=== PATIENT | female | born 2000 | race American Indian/Alaskan Native ===

== ENCOUNTER 2019-07-20 21:10 | Inpatient (IN) | payer MEDICAID ==
[2019-07-20] MEDS ORDERED: Sodium Chloride 0.9% 10 ML Syringe FLUSH PRN ×2 (23:04→23:33)
[2019-07-20] MEDS ORDERED: Acetaminophen 325 MG Tab PO PRN (23:33)
[2019-07-20] MEDS ORDERED: ePHEDrine 50 MG/ML SDV IVPUSH PRN ×2 (23:33)
[2019-07-20] MEDS ORDERED: diphenhydrAMINE 50 MG/ML SDV IVPUSH PRN ×2 (23:33)
[2019-07-20] MEDS ORDERED: Naloxone 0.4 MG/ML SDV IVPUSH PRN (23:33)
[2019-07-20] MEDS ORDERED: Ondansetron 4 MG/2 ML SDV IV PRN (23:33)
[2019-07-20] MEDS ORDERED: Lactated Ringers 1,000 ML IV ONE (23:33)
[2019-07-20] MEDS ORDERED: ePHEDrine 50 MG/ML SDV ONE (23:41)
[2019-07-20] MEDS ORDERED: Ropivacaine 200 MG in Premix Bag 1 BAG EPIDUR SCH (23:45)
--- NOTE | 2019-07-20 23:52 | PCM.LDHP ---
L&D History of Present Illness - General Date of Service: 07/20/19 Admit Problem/Dx: Patient Status Order with Admit Dx/Problem 07/20/19 21:30 Admission Status [Patient Status] [ADT] Routine 07/20/19 23:34 Patient Status [ADT] Routine Admission Diagnosis/Problem Admission Diagnosis/Problem - Related Data Allergies/Adverse Reactions: Allergies Allergy/AdvReac Type Severity Reaction Status Date / Time No Known Allergies Allergy Verified 07/20/19 22:22 Home Medications: Home Meds Mv-Mn/Iron/FA/Herbal/Digestive [ One Tablet] 1 tab PO DAILY 07/20/19 [ History] cephALEXin [Cephalexin] 500 mg PO BID 07/20/19 [History] Past Medical History - Past Health History Medical/Surgical History: Denies Medical/Surgical History 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: Psychiatric History: Reports: Anxiety, Depression Social & Family History - Family History Family Medical History: Noncontributory - Tobacco Use Smoking Status *Q: Current Every Day Smoker Years of Tobacco use: 11 Packs/Tins Daily: 1 Used Tobacco, but Quit: No Second Hand Smoke Exposure: No - Caffeine Use Caffeine Use: Reports: Energy Drinks, Soda - Recreational Drug Use Recreational Drug Use: Yes Drug Use in Last 12 Months: Yes Recreational Drug Type: Reports: Marijuana/Hashish Recreational Drug Use Frequency: Not Used In Over 3 Months Recreational Drug Last Use: three months ago H&P Review of Systems - Review of Systems: Review Of Systems: See Below General: Reports: No Symptoms HEENT: Reports: No Symptoms Pulmonary: Reports: No Symptoms Cardiovascular: Reports: No Symptoms Gastrointestinal: Reports: No Symptoms Genitourinary: Reports: No Symptoms Musculoskeletal: Reports: No Symptoms Skin: Reports: No Symptoms Psychiatric: Reports: No Symptoms Neurological: Reports: No Symptoms Hematologic/Lymphatic: Reports: No Symptoms Immunologic: Reports: No Symptoms L&D Exam - Exam Exam: See Below - Vital Signs Vital Signs: Last Vital Signs Temp 36.3 C 07/20/19 21:17 Pulse 88 07/20/19 21:17 Resp 18 07/20/19 21:17 BP 121/75 07/20/19 21:17 Pulse Ox 94 L 07/20/19 21:17 Weight: 69.127 kg - OB Specific Contraction Intensity: Strong Movement: Active Heart Tones: Present Heart Rate (FHR) Variability: Moderate (6-25 bmp) Presentation: Vertex - Garcia Score Garcia Score Cervix Position: Anterior Garcia Score Consistency: Soft Garcia Score Effacement: >80% Garcia Score Dilation: 3-4 cm Garcia Score Infant's Station: -1 ,0 Garcia Score Total: 11 - Exam General: Alert, Oriented, Cooperative HEENT: PERRLA, Conjunctiva Clear, EACs Clear, EOMI, Hearing Intact, Mucosa Moist & [place], Nares Patent, Normal Nasal Septum, Posterior Pharynx Clear, TMs Clear Neck: Supple, Trachea Midline Lungs: Clear to Auscultation, Normal Respiratory Effort Cardiovascular: Regular Rate, Regular Rhythm GI/Abdominal Exam: Normal Bowel Sounds, Soft, Non-Tender, No Organomegaly, No Distention, No Abnormal Bruit, No Mass, Pelvis Stable Rectal Exam: Normal Exam, Normal Rectal Tone Genitourinary: Normal external exam, Normal bimanual exam, Normal speculum exam Back Exam: Normal Inspection, Full Range of Motion Extremities: Normal Inspection, Normal Range of Motion, Non-Tender, No Pedal Edema, Normal Capillary Refill Skin: Warm, Dry, Intact Neurological: Cranial Nerves Intact, Reflexes Equal Bilateral DTR: 2+: Patella (L), Patella (R) Psychiatric: Alert, Normal Affect, Normal Mood - Patient Data Lab Results Last 24 hrs: Laboratory Results - last 24 hr 07/20/19 07/20/19 07/20/19 Range/Units 21:20 21:21 21:46 WBC (4.5-11.0) K/uL RBC (3.30-5.50) M/uL Hgb (12.0-15.0) g/dL Hct (36.0-48.0) % MCV (80-98) fL MCH (27-31) pg MCHC (32-36) % Plt Count (150-400) K/uL Neut % (Auto) (36-66) % Lymph % (Auto) (24-44) % [place] % (Auto) (2-6) % Eos % (Auto) (2-4) % Baso % (Auto) (0-1) % Urine Color Yellow (YELLOW) Urine Appearance Turbid A (CLEAR) Urine pH 7.0 (5.0-8.0) Ur Specific [place] 1.015 (1.008-1.030) Urine Protein 100 H (NEGATIVE) mg/dL Urine Glucose (UA) Normal (NEGATIVE) mg/dL Urine Ketones Negative (NEGATIVE) mg/dL Urine Occult Blood Small H (NEGATIVE) Urine Nitrite Negative (NEGATIVE) Urine Bilirubin Negative (NEGATIVE) Urine Urobilinogen 0.2 (0.2-1.0) EU/dL Ur Leukocyte Esterase Small H (NEGATIVE) Urine RBC 10-20 H (0-5) Urine WBC 10-20 H (0-5) Ur Epithelial Cells Few Amorphous Sediment Few Urine Bacteria Few Urine Mucus Not seen Membrane Rupture Positive H (NEGATIVE) Urine Opiates Screen Negative (NEGATIVE) Ur Oxycodone Screen Negative (NEGATIVE) Urine Methadone Screen Negative (NEGATIVE) Ur Propoxyphene Screen Negative (NEGATIVE) Ur Barbiturates Screen Negative (NEGATIVE) Ur Tricyclics Screen Negative (NEGATIVE) Ur Phencyclidine Scrn Negative (NEGATIVE) Ur Amphetamine Screen Negative (NEGATIVE) U Methamphetamines Scrn Presumptive positive H (NEGATIVE) Urine MDMA Screen Negative (NEGATIVE) U Benzodiazepines Scrn Negative (NEGATIVE) U Cocaine Metab Screen Negative (NEGATIVE) U Marijuana (THC) Screen Negative (NEGATIVE) 07/20/19 Range/Units 23:30 WBC 9.5 (4.5-11.0) K/uL RBC 3.38 (3.30-5.50) M/uL Hgb 10.5 L (12.0-15.0) g/dL Hct 31.1 L (36.0-48.0) % MCV 92 (80-98) fL MCH 31 (27-31) pg MCHC 34 (32-36) % Plt Count 336 (150-400) K/uL Neut % (Auto) 58 (36-66) % Lymph % (Auto) 31 (24-44) % [place] % (Auto) 8 H (2-6) % Eos % (Auto) 2 (2-4) % Baso % (Auto) 1 (0-1) % Urine Color (YELLOW) Urine Appearance (CLEAR) Urine pH (5.0-8.0) Ur Specific [place] (1.008-1.030) Urine Protein (NEGATIVE) mg/dL Urine Glucose (UA) (NEGATIVE) mg/dL Urine Ketones (NEGATIVE) mg/dL Urine Occult Blood (NEGATIVE) Urine Nitrite (NEGATIVE) Urine Bilirubin (NEGATIVE) Urine Urobilinogen (0.2-1.0) EU/dL Ur Leukocyte Esterase (NEGATIVE) Urine RBC (0-5) Urine WBC (0-5) Ur Epithelial Cells Amorphous Sediment Urine Bacteria Urine Mucus Membrane Rupture (NEGATIVE) Urine Opiates Screen (NEGATIVE) Ur Oxycodone Screen (NEGATIVE) Urine Methadone Screen (NEGATIVE) Ur Propoxyphene Screen (NEGATIVE) Ur Barbiturates Screen (NEGATIVE) Ur Tricyclics Screen (NEGATIVE) Ur Phencyclidine Scrn (NEGATIVE) Ur Amphetamine Screen (NEGATIVE) U Methamphetamines Scrn (NEGATIVE) Urine MDMA Screen (NEGATIVE) U Benzodiazepines Scrn (NEGATIVE) U Cocaine Metab Screen (NEGATIVE) U Marijuana (THC) Screen (NEGATIVE) Result Diagrams: 07/20/19 23:30 - Problem List (1) Insufficient care SNOMED Code(s): 8938373029471 ICD Code: O09.30 - SUPRVSN OF PREG W INSUFFICIENT ANTENAT CARE, UNSP TRIMESTER Status: Acute Current Visit: Yes (2) Maternal drug use complicating in third trimester, antepartum SNOMED Code(s): 179618080, 608963338 ICD Code: O99.323 - DRUG USE COMPLICATING , THIRD TRIMESTER Status : Acute Current Visit: Yes (3) 38 weeks gestation of SNOMED Code(s): 36109132 ICD Code: Z3A.38 - 38 WEEKS GESTATION OF Status: Acute Current Visit: Yes (4) SROM (spontaneous rupture of membranes) SNOMED Code(s): 218312441 ICD Code: [id number] - Status: Acute Current Visit: Yes Problem List Initiated/Reviewed/Updated: Yes Orders Last 24hrs: Active Orders 24 hr Category Date Time Status Admission Status [Patient Status] [ADT] Routine ADT 07/20/19 21:30 Active Patient Status [ADT] Routine ADT 07/20/19 23:34 Ordered Ambulate [RC] PER UNIT ROUTINE Care 07/20/19 23:33 Ordered Communication Order [RC] ASDIRECTED Care 07/20/19 23:34 Ordered Communication Order [RC] ASDIRECTED Care 07/20/19 23:34 Ordered Communication Order [RC] ROUTINE Care 07/20/19 23:34 Ordered Communication Order [RC] ROUTINE Care 07/20/19 23:34 Ordered Communication Order [RC] ROUTINE Care 07/20/19 23:34 Ordered Heart Tones [RC] PER UNIT ROUTINE Care 07/20/19 23:34 Ordered Non Stress Test [RC] Click to Edit Care 07/20/19 23:34 Ordered Insert Urinary Catheter [OM.PC] ASDIRECTED Care 07/20/19 23:45 Ordered Local Anesthetic Infusion Pump [RC] ASDIRECTED Care 07/20/19 23:34 Ordered Notify Provider Vital Signs [RC] PRN Care 07/20/19 23:33 Ordered Notify Provider [RC] PRN Care 07/20/19 23:34 Ordered Oxygen Therapy [RC] ASDIRECTED Care 07/20/19 23:34 Ordered PCEA Epidural [RC] ASDIRECTED Care 07/20/19 23:34 Ordered PCEA Epidural [RC] ASDIRECTED Care 07/20/19 23:34 Ordered PCEA Epidural [RC] ASDIRECTED Care 07/20/19 23:35 Ordered Pulse Oximetry [RC] ASDIRECTED Care 07/20/19 23:34 Ordered Up ad [place] [RC] ASDIRECTED Care 07/20/19 23:33 Ordered Urinary Catheter Assessment [RC] ASDIRECTED Care 07/20/19 23:35 Ordered VTE/DVT Education [RC] Click to Edit Care 07/20/19 23:37 Ordered Vital Signs [RC] PER UNIT ROUTINE Care 07/20/19 23:34 Ordered Vital Signs [RC] PER UNIT ROUTINE Care 07/20/19 23:34 Ordered Consult to Case Management/Personnel Security Assistant [CONS] Cons 07/20/19 23:33 Ordered Routine Regular Diet [DIET] Diet 07/20/19 Breakfast Ordered METHAMPHETAMINE D/L ISOMERS Routine Lab 07/20/19 22:39 Received Acetaminophen [Tylenol] Med 07/20/19 23:33 Ordered 650 mg PO Q4H PRN Lactated Ringers [Ringers, Lactated] 1,000 ml Med 07/20/19 23:33 Ordered IV .BOLUS Naloxone [Narcan] Med 07/20/19 23:33 Ordered 0.1 mg IVPUSH ASDIRECTED PRN Ondansetron [Zofran] Med 07/20/19 23:33 Ordered 4 mg IV Q4H PRN Ropivacaine [Naropin 0.2%] 200 mg Med 07/20/19 23:45 Ordered Premix Bag 1 bag EPIDUR ASDIRECTED Sodium Chloride 0.9% [Saline Flush] Med 07/20/19 23:04 Active 10 ml FLUSH ASDIRECTED PRN Sodium Chloride 0.9% [Saline Flush] Med 07/20/19 23:33 Ordered 10 ml FLUSH ASDIRECTED PRN diphenhydrAMINE [Benadryl] Med 07/20/19 23:33 Ordered 25 mg IVPUSH Q6H PRN diphenhydrAMINE [Benadryl] Med 07/20/19 23:33 Ordered 50 mg IVPUSH Q6H PRN ePHEDrine [ePHEDrine sulfate] Med 07/20/19 23:33 Ordered 10 mg IVPUSH ASDIRECTED PRN ePHEDrine [ePHEDrine sulfate] Med 07/20/19 23:33 Ordered 10 mg IVPUSH ASDIRECTED PRN DVT/VTE Prophylaxis Reflex [OM.PC] Routine Oth 07/20/19 23:33 Ordered Epidural Catheter Management [OM.PC] Routine Oth 07/20/19 23:34 Ordered Epidural Catheter Management [OM.PC] Urgent Oth 07/20/19 23:34 Ordered Peripheral IV Insertion Pediatric [OM.PC] Routine Oth 07/20/19 23:34 Ordered Saline Lock Insert [OM.PC] Routine Oth 07/20/19 23:04 Ordered Saline Lock Insert [OM.PC] Routine Oth 07/20/19 23:34 Ordered Resuscitation Status Routine Resus Stat 07/20/19 23:33 Ordered Medication Orders Acetaminophen (Tylenol) 650 mg PO Q4H PRN PRN Reason: Pain (Mild 1-3) and fever Diphenhydramine HCl (Benadryl) 25 mg IVPUSH Q6H PRN PRN Reason: Itching Diphenhydramine HCl (Benadryl) 50 mg IVPUSH Q6H PRN PRN Reason: Itching Ephedrine Sulfate (Ephedrine Sulfate) 10 mg IVPUSH ASDIRECTED PRN PRN Reason: Hypotension Ephedrine Sulfate (Ephedrine Sulfate) 10 mg IVPUSH ASDIRECTED PRN PRN Reason: Hypotension Lactated Ringer's (Ringers, Lactated) 1,000 mls @ 999 mls/hr IV .BOLUS ONE Stop: 07/21/19 00:33 Ropivacaine 200 mg/ Premix 100 mls @ 0 mls/hr EPIDUR ASDIRECTED MINH Naloxone HCl (Narcan) 0.1 mg IVPUSH ASDIRECTED PRN PRN Reason: Oversedation Ondansetron HCl (Zofran) 4 mg IV Q4H PRN PRN Reason: Nausea/Vomiting Sodium Chloride (Saline Flush) 10 ml FLUSH ASDIRECTED PRN PRN Reason: Keep Vein Open Sodium Chloride (Saline Flush) 10 ml FLUSH ASDIRECTED PRN PRN Reason: Keep Vein Open Assessment/Plan Comment:: 07/21/2019 18 yo at 38 0/7 gestational weeks came in with SROM around 1999 last evening Inconsistent history from patient Per records from [facility] Drug screen positive for methamphetamines on admission SVE-2-3/-1 Amnisure positive FHTs category one Patient states history of term demise she delivered at home with little to no care three years ago Significant other in room, supportive, states he has open CPS cases for history of drug abuse in [place] Labs-O positive, HIV negative, Rubella Immune, Hep B neg, GBS negative Plan- Continue to monitor for labor Continue to monitor FHT Patient can have an epidural for pain control Will place baby on a hold for positive methamphetamine in UDS Plan and anticipate a vaginal delivery
[2019-07-20] MEDS ORDERED: Ropivacaine 100 ML ONE (23:54)
--- NOTE | 2019-07-21 00:28 | PCM.PNLD ---
Labor Progress Note - VS & Meds Vital Signs: Last Vital Signs Temp 36.3 C 07/20/19 21:17 Pulse 112 H 07/21/19 00:08 Resp 18 07/20/19 21:17 BP 109/76 07/21/19 00:08 Pulse Ox 97 07/20/19 23:34 Active Medications: Current Medications Acetaminophen (Tylenol) 650 mg PO Q4H PRN PRN Reason: Pain (Mild 1-3) and fever Diphenhydramine HCl (Benadryl) 25 mg IVPUSH Q6H PRN PRN Reason: Itching Diphenhydramine HCl (Benadryl) 50 mg IVPUSH Q6H PRN PRN Reason: Itching Ephedrine Sulfate (Ephedrine Sulfate) 10 mg IVPUSH ASDIRECTED PRN PRN Reason: Hypotension Ephedrine Sulfate (Ephedrine Sulfate) 10 mg IVPUSH ASDIRECTED PRN PRN Reason: Hypotension Lactated Ringer's (Ringers, Lactated) 1,000 mls @ 999 mls/hr IV .BOLUS ONE Stop: 07/21/19 00:33 Last Admin: 07/20/19 22:45 Dose: 999 mls/hr Ropivacaine 200 mg/ Premix 100 mls @ 0 mls/hr EPIDUR ASDIRECTED MINH Naloxone HCl (Narcan) 0.1 mg IVPUSH ASDIRECTED PRN PRN Reason: Oversedation Ondansetron HCl (Zofran) 4 mg IV Q4H PRN PRN Reason: Nausea/Vomiting Sodium Chloride (Saline Flush) 10 ml FLUSH ASDIRECTED PRN PRN Reason: Keep Vein Open Sodium Chloride (Saline Flush) 10 ml FLUSH ASDIRECTED PRN PRN Reason: Keep Vein Open Discontinued Medications Ropivacaine (Naropin 0.2%) Confirm Administered Dose 100 mls @ as directed .ROUTE .STK-MED ONE Stop: 07/20/19 23:55 - Uterine Contractions Uterine Monitoring Mode: External [place] Contraction Intensity: Strong - Monitoring Monitor Mode: External Ultrasound Heart Rate (FHR) Baseline: 130 Heart Rate (FHR) Variability: Moderate (6-25 bmp) Accelerations: Present, 15x15 Decelerations: None Strip Review: Category I - Vaginal Exam Dilation (cm): 3 Effacement (Percent): 90 Station: 1 Cervical Position: Posterior Sterile Vaginal Exam Performed By: Dalia Vanessa - Labor Progress (Free Text) Labor Progress: 07/21/19 Assessment: at 38 weeks with SROM SVE /-1 Vertex presentation Category 1 tracing Plan: Nurse to recheck cervix at 0500, if no drastic change, start pitocin per protocol Anticipate vaginal
--- NOTE | 2019-07-21 01:49 | ANES ---
DATE OF SERVICE: 07/21/2019 INDICATION: Ms. Carlton is a 18-year-old female patient in labor, but I was asked to evaluate her for a labor epidural. She is approximately 3 cm and is a multipara. She was quite nervous and in quite a bit of pain when I arrived, and the risks and benefits of the procedure were explained to the patient, and she wished to proceed with labor epidural. TECHNIQUE: She was placed in a sitting position. Her back was prepped x3 with Betadine and 1% lidocaine skin local was used. The epidural was placed at L3-L4 using a 17-gauge Tuohy needle in loss of resistance technique. The epidural had very good feel throughout, and the epidural space was easily identified. There was negative CSF, negative blood, and negative paresthesias noted. Therefore, a catheter was threaded to 13 cm at the skin. There was negative CSF, negative blood, and negative paresthesias with the catheter as well. A 3 mL test dose of 1.5% lidocaine with epinephrine was given, this test dose was negative. The catheter was then secured with Tegaderm and tape, and the patient was placed in a supine position. A 0.2% ropivacaine bolus of 12 mL was given. She had very good results from the initial bolus and her vital signs remained stable. Therefore, a 0.2% ropivacaine drip was started at 12 mL/h. She tolerated the procedure very nicely. Her vital signs remained stable throughout the procedure and nurse was with me for the entire procedure. There were no anesthesia complications noted. We will continue to monitor her throughout her Labor and Delivery stay. Sarwat Freeman CRNA /[id number]
[2019-07-21] MEDS ORDERED: Penicillin G Potassium 5 MILLUNITS in Sodium Chloride 0.9% 50 ML IV ONE (06:00)
--- NOTE | 2019-07-21 06:25 | PCM.PNLD ---
Labor Progress Note - VS & Meds Vital Signs: Last Vital Signs Temp 35.8 C 07/21/19 04:47 Pulse 73 07/21/19 05:15 Resp 16 07/21/19 03:03 BP 108/57 L 07/21/19 05:15 Pulse Ox 93 L 07/21/19 05:15 Active Medications: Current Medications Acetaminophen (Tylenol) 650 mg PO Q4H PRN PRN Reason: Pain (Mild 1-3) and fever Diphenhydramine HCl (Benadryl) 25 mg IVPUSH Q6H PRN PRN Reason: Itching Diphenhydramine HCl (Benadryl) 50 mg IVPUSH Q6H PRN PRN Reason: Itching Ephedrine Sulfate (Ephedrine Sulfate) 10 mg IVPUSH ASDIRECTED PRN PRN Reason: Hypotension Ephedrine Sulfate (Ephedrine Sulfate) 10 mg IVPUSH ASDIRECTED PRN PRN Reason: Hypotension Ropivacaine 200 mg/ Premix 100 mls @ 0 mls/hr EPIDUR ASDIRECTED MINH Oxytocin/Sodium Chloride (Pitocin In Ns 20 Units/1,000 Ml) 20 unit in 1,000 mls @ 6 mls/hr IV TITRATE MINH; Protocol Last Titration: 07/21/19 06:00 Dose: 6 munits/min, 18 mls/hr Penicillin G Potassium 5 (millunits/ Sodium Chloride) 50 mls @ 100 mls/hr IV ONETIME ONE Stop: 07/21/19 06:29 Last Admin: 07/21/19 06:19 Dose: 100 mls/hr Penicillin G Potassium 2.5 (millunits/ Sodium Chloride) 50 mls @ 100 mls/hr IV Q4H MINH Naloxone HCl (Narcan) 0.1 mg IVPUSH ASDIRECTED PRN PRN Reason: Oversedation Ondansetron HCl (Zofran) 4 mg IV Q4H PRN PRN Reason: Nausea/Vomiting Sodium Chloride (Saline Flush) 10 ml FLUSH ASDIRECTED PRN PRN Reason: Keep Vein Open Sodium Chloride (Saline Flush) 10 ml FLUSH ASDIRECTED PRN PRN Reason: Keep Vein Open Discontinued Medications Lactated Ringer's (Ringers, Lactated) 1,000 mls @ 999 mls/hr IV .BOLUS ONE Stop: 07/21/19 00:33 Last Admin: 07/20/19 22:45 Dose: 999 mls/hr Ropivacaine (Naropin 0.2%) Confirm Administered Dose 100 mls @ as directed .ROUTE .STK-MED ONE Stop: 07/20/19 23:55 Oxytocin/Sodium Chloride (Pitocin In Ns 20 Units/1,000 Ml) 20 unit in 1,000 mls @ 2,997 mls/hr IV ONETIME ONE; Protocol Stop: 07/21/19 00:49 - Uterine Contractions Uterine Monitoring Mode: External [place] Contraction Frequency (min): 2-3 Contraction Duration (sec): 40-60 Contraction Intensity: Strong - Monitoring Monitor Mode: External Ultrasound Heart Rate (FHR) Baseline: 130 Heart Rate (FHR) Variability: Moderate (6-25 bmp) Accelerations: Present, 15x15 Decelerations: None Strip Review: Category I - Vaginal Exam Dilation (cm): 10 Effacement (Percent): 100 Station: 1 Cervical Position: Midposition Sterile Vaginal Exam Performed By: Dalia Vanesas - Labor Progress (Free Text) Labor Progress: 07/21/19 Assessment: 10/100/+1 Pitocin augmentation started this am after no cervical change Epidural with good pain relief Category 1 tracing, occasional early and variable decel Plan: Labor down as long as baby tolerates Begin pushing when pt ready Anticipate Penicillin was given for prophylaxis of unknown/questionable rupture time and poor cervical change, questioning possible infection
[2019-07-21] MEDS ORDERED: Ibuprofen 600 MG Tab PO PRN (07:05)
[2019-07-21] MEDS ORDERED: Lanolin 100% Cream 40 GM Tube TOP PRN (07:05)
[2019-07-21] MEDS ORDERED: Witch Hazel Medicated Pads 100/Jar TOP ONE (07:05)
[2019-07-21] MEDS ORDERED: Benzocaine 20% Top Spray 56 GM Bottle TOP PRN (07:05)
--- NOTE | 2019-07-21 07:17 | PCM.DEL ---
L & D Note - General Info Date of Service: 07/21/19 Mother's Due Date: 08/04/19 - Delivery Note Labor: Spontaneous, Augmented by Oxytocin Delivery Outcome: Livebirth Infant Delivery Method: Spontaneous Vaginal Delivery-Single Infant Delivery Mode: Spontaneous Presentation: Vertex Nuchal Cord: None Anesthesia Type: Epidural Amniotic Fluid Description: Clear Episiotomy Type: None Laceration: None Placenta: Intact, Spontaneous Cord: 3 Vessels Resuscitation Needed: No [place]: Stimulated Score 1 min: 8 Score 5 min: 9 Second Stage Interventions: Reports: Second Nurse Assessed Progress of Descent, Second Nurse Reviewed Contraction Pattern, Second Nurse Reviewed Heart Tones, Encouragement Given, Laboring Down, Pushing Effectively, Pushing, McRobert's Position, Pushing, Stirrups/Leg Supports Delivery Comments (Free Text/Narrative):: 07/21/19 18 yo at 38 0/1 weeks delivered via spontaneous vaginal delivery at 0652 in [place] position. Baby was immediately placed on mothers chest and was dried and stimulated. Apgars 8, 9. No nuchal present, 3 vessel cord. Placenta was delivered spontaneously intact. There were no tears, there was a left periurethral split that was not bleeding and not repaired. No cervical lacerations, no vaginal lacerations. EBL: 150 ml Mother is stable and is on mothers chest. FF and bleeding scant. - General Info Date of Service: 07/21/19 Functional Status: Reports: Pain Controlled - Review of Systems General: Reports: No Symptoms HEENT: Reports: No Symptoms Pulmonary: Reports: No Symptoms Cardiovascular: Reports: No Symptoms Gastrointestinal: Reports: No Symptoms Genitourinary: Reports: No Symptoms Musculoskeletal: Reports: No Symptoms Skin: Reports: No Symptoms Neurological: Reports: No Symptoms Psychiatric: Reports: No Symptoms - Patient Data Vitals - Most Recent: Last Vital Signs Temp 35.8 C 07/21/19 04:47 Pulse 73 07/21/19 05:15 Resp 16 07/21/19 03:03 BP 108/57 L 07/21/19 05:15 Pulse Ox 93 L 07/21/19 05:15 Weight - Most Recent: 69.127 kg Lab Results Last 24 Hours: Laboratory Results - last 24 hr 07/20/19 07/20/19 07/20/19 Range/Units 21:20 21:21 21:46 WBC (4.5-11.0) K/uL RBC (3.30-5.50) M/uL Hgb (12.0-15.0) g/dL Hct (36.0-48.0) % MCV (80-98) fL MCH (27-31) pg MCHC (32-36) % Plt Count (150-400) K/uL Neut % (Auto) (36-66) % Lymph % (Auto) (24-44) % [place] % (Auto) (2-6) % Eos % (Auto) (2-4) % Baso % (Auto) (0-1) % Urine Color Yellow (YELLOW) Urine Appearance Turbid A (CLEAR) Urine pH 7.0 (5.0-8.0) Ur Specific [place] 1.015 (1.008-1.030) Urine Protein 100 H (NEGATIVE) mg/dL Urine Glucose (UA) Normal (NEGATIVE) mg/dL Urine Ketones Negative (NEGATIVE) mg/dL Urine Occult Blood Small H (NEGATIVE) Urine Nitrite Negative (NEGATIVE) Urine Bilirubin Negative (NEGATIVE) Urine Urobilinogen 0.2 (0.2-1.0) EU/dL Ur Leukocyte Esterase Small H (NEGATIVE) Urine RBC 10-20 H (0-5) Urine WBC 10-20 H (0-5) Ur Epithelial Cells Few Amorphous Sediment Few Urine Bacteria Few Urine Mucus Not seen Membrane Rupture Positive H (NEGATIVE) Urine Opiates Screen Negative (NEGATIVE) Ur Oxycodone Screen Negative (NEGATIVE) Urine Methadone Screen Negative (NEGATIVE) Ur Propoxyphene Screen Negative (NEGATIVE) Ur Barbiturates Screen Negative (NEGATIVE) Ur Tricyclics Screen Negative (NEGATIVE) Ur Phencyclidine Scrn Negative (NEGATIVE) Ur Amphetamine Screen Negative (NEGATIVE) U Methamphetamines Scrn Presumptive positive H (NEGATIVE) Urine MDMA Screen Negative (NEGATIVE) U Benzodiazepines Scrn Negative (NEGATIVE) U Cocaine Metab Screen Negative (NEGATIVE) U Marijuana (THC) Screen Negative (NEGATIVE) 07/20/19 Range/Units 23:30 WBC 9.5 (4.5-11.0) K/uL RBC 3.38 (3.30-5.50) M/uL Hgb 10.5 L (12.0-15.0) g/dL Hct 31.1 L (36.0-48.0) % MCV 92 (80-98) fL MCH 31 (27-31) pg MCHC 34 (32-36) % Plt Count 336 (150-400) K/uL Neut % (Auto) 58 (36-66) % Lymph % (Auto) 31 (24-44) % [place] % (Auto) 8 H (2-6) % Eos % (Auto) 2 (2-4) % Baso % (Auto) 1 (0-1) % Urine Color (YELLOW) Urine Appearance (CLEAR) Urine pH (5.0-8.0) Ur Specific [place] (1.008-1.030) Urine Protein (NEGATIVE) mg/dL Urine Glucose (UA) (NEGATIVE) mg/dL Urine Ketones (NEGATIVE) mg/dL Urine Occult Blood (NEGATIVE) Urine Nitrite (NEGATIVE) Urine Bilirubin (NEGATIVE) Urine Urobilinogen (0.2-1.0) EU/dL Ur Leukocyte Esterase (NEGATIVE) Urine RBC (0-5) Urine WBC (0-5) Ur Epithelial Cells Amorphous Sediment Urine Bacteria Urine Mucus Membrane Rupture (NEGATIVE) Urine Opiates Screen (NEGATIVE) Ur Oxycodone Screen (NEGATIVE) Urine Methadone Screen (NEGATIVE) Ur Propoxyphene Screen (NEGATIVE) Ur Barbiturates Screen (NEGATIVE) Ur Tricyclics Screen (NEGATIVE) Ur Phencyclidine Scrn (NEGATIVE) Ur Amphetamine Screen (NEGATIVE) U Methamphetamines Scrn (NEGATIVE) Urine MDMA Screen (NEGATIVE) U Benzodiazepines Scrn (NEGATIVE) U Cocaine Metab Screen (NEGATIVE) U Marijuana (THC) Screen (NEGATIVE) Med Orders - Current: Current Medications Acetaminophen (Tylenol) 650 mg PO Q4H PRN PRN Reason: Pain (Mild 1-3) and fever Diphenhydramine HCl (Benadryl) 25 mg IVPUSH Q6H PRN PRN Reason: Itching Diphenhydramine HCl (Benadryl) 50 mg IVPUSH Q6H PRN PRN Reason: Itching Ephedrine Sulfate (Ephedrine Sulfate) 10 mg IVPUSH ASDIRECTED PRN PRN Reason: Hypotension Ephedrine Sulfate (Ephedrine Sulfate) 10 mg IVPUSH ASDIRECTED PRN PRN Reason: Hypotension Ropivacaine 200 mg/ Premix 100 mls @ 0 mls/hr EPIDUR ASDIRECTED MINH Oxytocin/Sodium Chloride (Pitocin In Ns 20 Units/1,000 Ml) 20 unit in 1,000 mls @ 6 mls/hr IV TITRATE MINH; Protocol Last Titration: 07/21/19 06:00 Dose: 6 munits/min, 18 mls/hr Penicillin G Potassium 2.5 (millunits/ Sodium Chloride) 50 mls @ 100 mls/hr IV Q4H MINH Naloxone HCl (Narcan) 0.1 mg IVPUSH ASDIRECTED PRN PRN Reason: Oversedation Ondansetron HCl (Zofran) 4 mg IV Q4H PRN PRN Reason: Nausea/Vomiting Sodium Chloride (Saline Flush) 10 ml FLUSH ASDIRECTED PRN PRN Reason: Keep Vein Open Sodium Chloride (Saline Flush) 10 ml FLUSH ASDIRECTED PRN PRN Reason: Keep Vein Open Discontinued Medications Lactated Ringer's (Ringers, Lactated) 1,000 mls @ 999 mls/hr IV .BOLUS ONE Stop: 07/21/19 00:33 Last Admin: 07/20/19 22:45 Dose: 999 mls/hr Ropivacaine (Naropin 0.2%) Confirm Administered Dose 100 mls @ as directed .ROUTE .STK-MED ONE Stop: 07/20/19 23:55 Oxytocin/Sodium Chloride (Pitocin In Ns 20 Units/1,000 Ml) 20 unit in 1,000 mls @ 2,997 mls/hr IV ONETIME ONE; Protocol Stop: 07/21/19 00:49 Penicillin G Potassium 5 (millunits/ Sodium Chloride) 50 mls @ 100 mls/hr IV ONETIME ONE Stop: 07/21/19 06:29 Last Admin: 07/21/19 06:19 Dose: 100 mls/hr - Exam General: Alert, Oriented HEENT: Pupils Equal, Pupils Reactive, EOMI, Mucous Membr. Moist/[place] Neck: Supple Lungs: Clear to Auscultation, Normal Respiratory Effort Cardiovascular: Regular Rate, Regular Rhythm GI/Abdominal Exam: Normal Bowel Sounds, Soft, Non-Tender, No Organomegaly, Pelvis Stable (Female) Exam: Normal External Exam, Normal Bimanual Exam, Enlarged Uterus, Vaginal Bleeding. No: Cervical Lesions, Vaginal Lesions, Vaginal Tears Back Exam: Normal Inspection, Full Range of Motion Extremities: Normal Inspection, Normal Range of Motion, Non-Tender, No Pedal Edema, Normal Capillary Refill Skin: Warm, Dry, Intact Neurological: No New Focal Deficit Psy/Mental Status: Alert, Normal Affect, Normal Mood - Problem List & Annotations (1) Insufficient care SNOMED Code(s): 5167854517671 Code(s): O09.30 - SUPRVSN OF PREG W INSUFFICIENT ANTENAT CARE, UNSP TRIMESTER Status: Acute Current Visit: Yes (2) Maternal drug use complicating in third trimester, antepartum SNOMED Code(s): 016241425, 785701445 Code(s): O99.323 - DRUG USE COMPLICATING , THIRD TRIMESTER Status : Acute Current Visit: Yes (3) 38 weeks gestation of SNOMED Code(s): 94817885 Code(s): Z3A.38 - 38 WEEKS GESTATION OF Status: Acute Current Visit: Yes (4) SROM (spontaneous rupture of membranes) SNOMED Code(s): 591331355 Code(s): RQU8128 - Status: Acute Current Visit: Yes (5) Vaginal delivery SNOMED Code(s): 909106375 Code(s): O80 - ENCOUNTER FOR FULL-TERM UNCOMPLICATED DELIVERY Status: Acute Current Visit: Yes (6) started SNOMED Code(s): 894325049 Code(s): JDM6418 - Status: Acute Current Visit: Yes - Problem List Review Problem List Initiated/Reviewed/Updated: Yes - My Orders Last 24 Hours: My Active Orders 07/20/19 21:30 Admission Status [Patient Status] [ADT] Routine 07/20/19 22:39 METHAMPHETAMINE D/L ISOMERS Routine 07/20/19 23:04 Sodium Chloride 0.9% [Saline Flush] 10 ml FLUSH ASDIRECTED PRN Saline Lock Insert [OM.PC] Routine 07/20/19 23:33 Ambulate [RC] PER UNIT ROUTINE Notify Provider Vital Signs [RC] PRN Up ad [place] [RC] ASDIRECTED Consult to Case Management/Multimedia Services Manager [CONS] Routine Acetaminophen [Tylenol] 650 mg PO Q4H PRN Naloxone [Narcan] 0.1 mg IVPUSH ASDIRECTED PRN Ondansetron [Zofran] 4 mg IV Q4H PRN Sodium Chloride 0.9% [Saline Flush] 10 ml FLUSH ASDIRECTED PRN diphenhydrAMINE [Benadryl] 25 mg IVPUSH Q6H PRN diphenhydrAMINE [Benadryl] 50 mg IVPUSH Q6H PRN ePHEDrine [ePHEDrine sulfate] 10 mg IVPUSH ASDIRECTED PRN ePHEDrine [ePHEDrine sulfate] 10 mg IVPUSH ASDIRECTED PRN DVT/VTE Prophylaxis Reflex [OM.PC] Routine Resuscitation Status Routine 07/20/19 23:34 Patient Status [ADT] Routine Communication Order [RC] ASDIRECTED Communication Order [RC] ASDIRECTED Communication Order [RC] ROUTINE Communication Order [RC] ROUTINE Communication Order [RC] ROUTINE Heart Tones [RC] PER UNIT ROUTINE Non Stress Test [RC] Click to Edit Local Anesthetic Infusion Pump [RC] ASDIRECTED Notify Provider [RC] PRN Oxygen Therapy [RC] ASDIRECTED PCEA Epidural [RC] ASDIRECTED Pulse Oximetry [RC] ASDIRECTED Vital Signs [RC] PER UNIT ROUTINE Epidural Catheter Management [OM.PC] Routine Epidural Catheter Management [OM.PC] Urgent Peripheral IV Insertion Pediatric [OM.PC] Routine Saline Lock Insert [OM.PC] Routine 07/20/19 23:35 Urinary Catheter Assessment [RC] ASDIRECTED 07/20/19 23:37 VTE/DVT Education [RC] Click to Edit 07/20/19 23:45 Insert Urinary Catheter [OM.PC] ASDIRECTED Ropivacaine [Naropin 0.2%] 200 mg Premix Bag 1 bag EPIDUR ASDIRECTED 07/20/19 Breakfast Regular Diet [DIET] 07/21/19 00:30 Oxytocin/Normal Saline [Pitocin in NS 20 Units/1,000 ML] 20 unit in 1,000 ml IV TITRATE 07/21/19 05:46 Dietary Supplements [RC] BIDMEALS 07/21/19 07:05 Patient Status [ADT] Routine Vital Signs [RC] PFP Benzocaine [[id number]-[id number] 20% [place]] See Dose Instructions TOP Q4H ONE Ibuprofen [Motrin] 600 mg PO Q4H PRN Lanolin [Lansinoh HPA] 1 gm TOP ASDIRECTED ONE Witch Bea [Tucks] 1 pad TOP ASDIRECTED ONE Assess Lochia [WOMSER] Per Unit Routine Assess Uterine Involution [WOMSER] Per Unit Routine 07/21/19 07:07 Ice Therapy [OM.PC] Per Unit Routine Perineal Care [OM.PC] Per Unit Routine Sitz Bath [OM.PC] Per Unit Routine 07/21/19 07:08 Peripheral IV Discontinue [OM.PC] Routine 07/21/19 10:00 Penicillin G Potassium [Pfizerpen] 2.5 millunits Sodium Chloride 0.9% [Normal Saline] 50 ml IV Q4H 07/22/19 06:00 CBC WITH AUTO DIFF [HEME] Routine - Assessment Assessment:: 07/21/19 18 yo at 38 0/7 weeks with at 0652. No vaginal tears or lacerations. FF with scant bleeding. - Plan Plan:: 07/21/2019 18 yo at 38 0/7 gestational weeks came in with SROM around 1999 last evening Inconsistent history from patient Per records from [facility] care Drug screen positive for methamphetamines on admission SVE-2-/-1 Amnisure positive FHTs category one Patient states history of term demise she delivered at home with little to no care three years ago Significant other in room, supportive, states he has open CPS cases for history of drug abuse in [place] Labs-O positive, HIV negative, Rubella Immune, Hep B neg, GBS negative Plan- Continue to monitor for labor Continue to monitor FHT Patient can have an epidural for pain control Will place baby on a hold for positive methamphetamine in UDS Plan and anticipate a vaginal delivery 07/21/19 Routine cares support Anticipate 24-48 hour stay Social service consult placed
[2019-07-21] MEDS ORDERED: Ibuprofen 200 MG Tab, 24 Tab Bulk Bottle PO PRN (07:28)
[2019-07-21] MEDS ORDERED: Acetaminophen 325 MG Tab, 50 Tab Bulk Bottle PO PRN (07:28)
[2019-07-21] MEDS ORDERED: Penicillin G Potassium 2.5 MILLUNITS in Sodium Chloride 0.9% 50 ML IV SCH (10:00)
--- NOTE | 2019-07-22 08:46 | PCM.PNPP ---
- General Info Date of Service: 07/22/19 Functional Status: Reports: Pain Controlled - Review of Systems General: Reports: No Symptoms HEENT: Reports: No Symptoms Pulmonary: Reports: No Symptoms Cardiovascular: Reports: No Symptoms Gastrointestinal: Reports: No Symptoms Genitourinary: Reports: No Symptoms Musculoskeletal: Reports: No Symptoms Skin: Reports: No Symptoms Neurological: Reports: No Symptoms Psychiatric: Reports: Depression, Agitation, Other (flat affect) - General Info Date of Service: 07/22/19 - Patient Data Vital Signs - Most Recent: Last Vital Signs Temp 37.1 C 07/22/19 07:39 Pulse 80 07/22/19 07:39 Resp 16 07/22/19 07:39 BP 107/50 L 07/22/19 07:39 Pulse Ox 97 07/22/19 07:39 Weight - Most Recent: 69.127 kg I&O - Last 24 Hours: Intake & Output 07/21/19 07/22/19 07/22/19 22:59 06:59 14:59 Intake Total 340 250 Balance 340 250 Lab Results - Last 24 Hours: Laboratory Results - last 24 hr 07/22/19 Range/Units 05:30 WBC 13.5 H (4.5-11.0) K/uL RBC 3.62 (3.30-5.50) M/uL Hgb 11.0 L (12.0-15.0) g/dL Hct 33.5 L (36.0-48.0) % MCV 93 (80-98) fL MCH 30 (27-31) pg MCHC 33 (32-36) % Plt Count 305 (150-400) K/uL Neut % (Auto) 68 H (36-66) % Lymph % (Auto) 26 (24-44) % [place] % (Auto) 5 (2-6) % Eos % (Auto) 1 L (2-4) % Baso % (Auto) 0 (0-1) % Med Orders - Current: Current Medications Acetaminophen (Tylenol Bulk Bottle) 325 - 650 mg PO Q4H PRN PRN Reason: Pain Last Admin: 07/21/19 10:20 Dose: 325 mg Benzocaine (Mreh-N-Itzljxu 20% [place]) 0 gm TOP Q4H PRN PRN Reason: PAIN Diphenhydramine HCl (Benadryl) 25 mg IVPUSH Q6H PRN PRN Reason: Itching Diphenhydramine HCl (Benadryl) 50 mg IVPUSH Q6H PRN PRN Reason: Itching Emollient Ointment (Lansinoh Hpa) 0 gm TOP ASDIRECTED PRN PRN Reason: PAIN Ephedrine Sulfate (Ephedrine Sulfate) 10 mg IVPUSH ASDIRECTED PRN PRN Reason: Hypotension Ropivacaine 200 mg/ Premix 100 mls @ 0 mls/hr EPIDUR ASDIRECTED MINH Oxytocin/Sodium Chloride (Pitocin In Ns 20 Units/1,000 Ml) 20 unit in 1,000 mls @ 6 mls/hr IV TITRATE MINH; Protocol Last Titration: 07/21/19 06:00 Dose: 6 munits/min, 18 mls/hr Ibuprofen (Motrin Bulk Bottle) 600 mg PO Q6H PRN PRN Reason: Pain Last Admin: 07/21/19 10:19 Dose: 600 mg Naloxone HCl (Narcan) 0.1 mg IVPUSH ASDIRECTED PRN PRN Reason: Oversedation Ondansetron HCl (Zofran) 4 mg IV Q4H PRN PRN Reason: Nausea/Vomiting Sodium Chloride (Saline Flush) 10 ml FLUSH ASDIRECTED PRN PRN Reason: Keep Vein Open Discontinued Medications Ephedrine Sulfate (Ephedrine Sulfate) Confirm Administered Dose 50 mg .ROUTE .STK-MED ONE Stop: 07/20/19 23:42 Lactated Ringer's (Ringers, Lactated) 1,000 mls @ 999 mls/hr IV .BOLUS ONE Stop: 07/21/19 00:33 Last Admin: 07/20/19 22:45 Dose: 999 mls/hr Ropivacaine (Naropin 0.2%) Confirm Administered Dose 100 mls @ as directed .ROUTE .STK-MED ONE Stop: 07/20/19 23:55 Oxytocin/Sodium Chloride (Pitocin In Ns 20 Units/1,000 Ml) 20 unit in 1,000 mls @ 2,997 mls/hr IV ONETIME ONE; Protocol Stop: 07/21/19 00:49 Last Admin: 07/22/19 03:12 Dose: Not Given Penicillin G Potassium 5 (millunits/ Sodium Chloride) 50 mls @ 100 mls/hr IV ONETIME ONE Stop: 07/21/19 06:29 Last Admin: 07/21/19 06:19 Dose: 100 mls/hr Penicillin G Potassium 2.5 (millunits/ Sodium Chloride) 50 mls @ 100 mls/hr IV Q4H MINH Last Admin: 07/21/19 10:28 Dose: Not Given Sodium Chloride (Saline Flush) 10 ml FLUSH ASDIRECTED PRN PRN Reason: Keep Vein Open Witch Bea (Tucks) 1 pad TOP ASDIRECTED ONE Stop: 07/21/19 07:06 Last Admin: 07/22/19 03:12 Dose: Not Given - Infant Interaction Disposition, : to Nursery Interaction: Not Interacting Infant Feeding: Bottle Fed Support Person: Mother - Recovery Exam Fundal Tone: Firm Fundal Level: 1 Fingerbreadths Below Umbilicus Fundal Placement: Midline Lochia Amount: Small Lochia Color: Rubra/Red Perineum Description: Intact, Minimal Bruising/Swelling Episiotomy/Laceration: None Bladder Status: Palpable Urinary Elimination: Voided - Exam General: Alert, Oriented HEENT: Pupils Equal Neck: Supple Lungs: Clear to Auscultation, Normal Respiratory Effort Cardiovascular: Regular Rate, Regular Rhythm GI/Abdominal Exam: Normal Bowel Sounds, Soft, Non-Tender, No Organomegaly, No Distention, No Abnormal Bruit, No Mass, Pelvis Stable Extremities: Normal Inspection, Normal Range of Motion, Non-Tender, No Pedal Edema, Normal Capillary Refill Skin: Warm, Dry, Intact Wound/Incisions: Healing Well Neurological: No New Focal Deficit Psy/Mental Status: Alert, Depressed, Agitated - Problem List & Annotations (1) Insufficient care SNOMED Code(s): 4911162379867 Code(s): O09.30 - SUPRVSN OF PREG W INSUFFICIENT ANTENAT CARE, UNSP TRIMESTER Status: Acute Current Visit: Yes (2) Maternal drug use complicating in third trimester, antepartum SNOMED Code(s): 403876774, 134805550 Code(s): O99.323 - DRUG USE COMPLICATING , THIRD TRIMESTER Status : Acute Current Visit: Yes (3) 38 weeks gestation of SNOMED Code(s): 31842792 Code(s): Z3A.38 - 38 WEEKS GESTATION OF Status: Acute Current Visit: Yes (4) SROM (spontaneous rupture of membranes) SNOMED Code(s): 955548317 Code(s): QLC0059 - Status: Acute Current Visit: Yes (5) Vaginal delivery SNOMED Code(s): 936954772 Code(s): O80 - ENCOUNTER FOR FULL-TERM UNCOMPLICATED DELIVERY Status: Acute Current Visit: Yes - Problem List Review Problem List Initiated/Reviewed/Updated: Yes - Assessment Assessment:: 07/21/19 18 yo at 38 0/7 weeks with at 0652. No vaginal tears or lacerations. FF with scant bleeding. 07/22/19 PP day 1, stable Hgb 11.0 today Poor interaction and bonding with Mother in room with her, she says she would like to start antidepressants Offered treatment again and discussed options, patient declines - Plan Plan:: 07/21/2019 18 yo at 38 0/7 gestational weeks came in with SROM around 1999 last evening Inconsistent history from patient Per records from [facility] care Drug screen positive for methamphetamines on admission SVE-2-/-1 Amnisure positive FHTs category one Patient states history of term demise she delivered at home with little to no care three years ago Significant other in room, supportive, states he has open CPS cases for history of drug abuse in [place] Labs-O positive, HIV negative, Rubella Immune, Hep B neg, GBS negative Plan- Continue to monitor for labor Continue to monitor FHT Patient can have an epidural for pain control Will place baby on a hold for positive methamphetamine in UDS Plan and anticipate a vaginal delivery 07/21/19 Routine cares support Anticipate 24-48 hour stay Social service consult placed 07/22/19 Will discharge today but encouraged mother to stay here in her room so she can barry and care for her baby Will start Celexa, follow up in 1 week for mood with me or in [place] Pt will let me know if she changes her mind about treatment, but currently refuses
[2019-07-22] MEDS ORDERED: Citalopram 10 MG Tab PO SCH (09:00)
[2019-07-27 09:08] LABS: L-METHAMPHETAMINE <10 ng/mL (NEG)
== END 2019-07-22 17:29 | disposition home or self-care (01) | DRG 806 ==
LOC: JP.OBCHECK 21:10 → JP.OB 21:27 → UNDOADMOB 21:27 → OBSVTOIN 07-21 06:52 → JP.OB 07-21 06:52 → JP.MS 07-21 11:15
PROVIDERS: ADMIT Advanced Practice Midwife; ATTEND Advanced Practice Midwife
PROC: 10E0XZZ Delivery of Products of Conception, External Approach (ICD-10-PCS; principal; 2019-07-21)
PROC: 00HU33Z Insertion of Infusion Device into Spinal Canal, Percutaneous Approach (ICD-10-PCS; 2019-07-21)
PROC: 3E0R3BZ Introduction of Anesthetic Agent into Spinal Canal, Percutaneous Approach (ICD-10-PCS; 2019-07-21)
DX: O42.92 Full-term premature rupture of membranes, unspecified as to length of time between rupture and onset of labor (principal); O99.324 Drug use complicating childbirth; Z37.0 Single live birth; Z3A.38 38 weeks gestation of pregnancy; O99.334 Smoking (tobacco) complicating childbirth; F15.90 Other stimulant use, unspecified, uncomplicated; Z3A.00 Weeks of gestation of pregnancy not specified; Z87.59 Personal history of other complications of pregnancy, childbirth and the puerperium
CPT/HCPCS: 36415; 51702; 59409; 80305-QW; 81001; 84112; 85025; 99211; A9270-GY; J2540; J2590; J2795; J7050; J7120